=== PATIENT | male | born 1980 | race African-American/Black ===

== ENCOUNTER 2019-09-14 09:47 | Inpatient (IN) | payer OTHER ==
[2019-09-14 11:10] VITALS: BMI 19.8
--- NOTE | 2019-09-14 11:43 | HP ---
CIWA Score Nausea/Vomitin Muscle Tremors: 1-None Visible, but [place] Anxiety: 6 Agitation: 3 Paroxysmal Sweats: 1-Minimal Palms Moist Orientation: 0-Oriented Tacttile Disturbances: 2-Mild Itch/Numbness/Burn Auditory Disturbances: 0-None Visual Disturbances: 1-Very Mild Sensitivity Headache: 3-Moderate CIWA-Ar Total Score: 20 - Admission Criteria OASAS Guidelines: Admission for Medically Managed Detox: Requires at least one of the followin. CIWA greater than 12 2. Seizures within the past 24 hours 3. Delirium tremens within the past 24 hours 4. Hallucinations within the past 24 hours 5. Acute intervention needed for co occurring medical disorder 6. Acute intervention needed for co occurring psychiatric disorder 7. Severe withdrawal that cannot be handled at a lower level of care (continued vomiting, continued diarrhea, abnormal vital signs) requiring intravenous medication and/or fluids 8. Admitting History and Physical - Admission Chief Complaint: " Ifor new year don't like where my life is going. I want to make changes and be happy and get back with my family." History of Present Illness: 39 year old male with history of opioid dependence, alcohol dependence with withdrawals, and cocaine use disorder. Heroin uses 1 bundle on weekends, last used yesterday. He is drinking 1 6 pack of beers daily, last drank yesterday. Plus 1 pint of vodka every weekend. He is using cocaine/ crack fridays and saturdays $8 ballers 170-180$ He has attempted detox in the past last one 3 weeks ago in [facility]. He completed it and then relapsed. He believe he relapsed due to homeless living in shelters and friend's homes. He smokes 1/2 ppd for since age 14 years old. PMH: None Psurg: Left knee ACL LCL reconstructive surgery due to accident 04/2013. He's displaced with and children about 3 weeks. He is homeless and not in intermediate system. He's done 3 months [facility] and then [facility]. History Source: Patient Limitations to Obtaining History: No Limitations - Past Surgical History Additional Past Surgical History: LEft Knee reconstructive surgery. 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 Loss EENT: reports: Double Vision Respiratory: reports: No Symptoms reported Cardiac: reports: No Symptoms Reported GI: reports: Nausea, Abdominal cramping : reports: No Symptoms Reported Musculoskeletal: reports: No Symptoms Reported Integumentary: reports: No Symptoms Reported Neuro: reports: No Symptoms reported Endocrine: reports: No Symptoms Reported Hematology: reports: No Symptoms Reported Psychiatric: reports: Judgement Intact, Mood/Affect Appropiate, Orientated x3 Other Systems: Reviewed and Negative Patient History - Patient Medical History Hx Anemia: No Hx Asthma: No Hx Chronic Obstructive Pulmonary Disease (COPD): No Hx Cancer: No Hx Cardiac Disorders: No Hx Congestive Heart Failure: No Hx Hypertension: No Hx Hypercholesterolemia: No Hx Pacemaker: No HX Cerebrovascular Accident: No Hx Seizures: No Hx Dementia: No Hx Diabetes: No Hx Gastrointestinal Disorders: No Hx Liver Disease: No Hx Genitourinary Disorders: No Hx Sexually Transmitted Disorders: No Hx Renal Disease (ESRD): No Hx Thyroid Disease: No Hx Human Immunodeficiency Virus (HIV): No Hx Hepatitis C: No Hx Depression: No Hx Suicide Attempt: No Hx Bipolar Disorder: No Hx Schizophrenia: No - Patient Surgical History Past Surgical History: Yes Other Surgical History: Left Knee reconstructive surgery - PPD History Previous Implant?: No Documented Results: Negative w/o proof Implanted On Prior R Admission?: No Results: negative PPD to be Administered?: Yes - Smoking Cessation Smoking history: Current every day smoker Have you smoked in the past 12 months: Yes Aproximately how many cigarettes per day: 10 Hx Chewing Tobacco Use: No Initiated information on smoking cessation: Yes 'Breaking Loose' booklet given: 09/14/19 - Substances abused Alcohol Substance route: Oral Frequency: 3-6 times per week Amount used: a pint of vodka Age of first use: 14 Date of last use: 09/12/19 Cocaine Substance route: Smoking Frequency: 1-2 times per week Amount used: $320/week Age of first use: 30 Date of last use: 09/13/19 Heroin Substance route: Inhalation Frequency: 1-2 times per week Amount used: $100/week Age of first use: 38 Date of last use: 09/13/19 Admission Physical Exam [facility] - Vital Signs Vital Signs: Vital Signs - 24 hr 09/14/19 10:57 Temperature 98.7 F Pulse Rate 93 H Respiratory 18 Rate Blood Pressure 119/61 - Physical General Appearance: Yes: Alcohol on Breath, Cachetic, Tremorous, Irritable, Sweating, Anxious HEENTM: Yes: EOMI, Hearing grossly Normal, Normal ENT Inspection, Normocephalic , Normal Voice, GABRIEL, Pharynx Normal, Tm's normal Respiratory: Yes: Chest Non-Tender, Lungs Clear, Normal Breath Sounds, No Respiratory Distress, No Accessory Muscle Use Neck: Yes: No masses,lesions,Nodules, Supple, Trachea in good position Breast: Yes: Within Normal Limits Cardiology: Yes: Regular Rhythm, Regular Rate, S1, S2 Abdominal: Yes: Normal Bowel Sounds, Non Tender, Flat, Soft Genitourinary: Yes: Within Normal Limits Back: Yes: Normal Inspection Musculoskeletal: Yes: full range of Motion, Gait Steady, Pelvis Stable Extremities: Yes: Normal Capillary Refill, Normal Inspection, Normal Range of Motion, Non-Tender Neurological: Yes: air cargo agent II-XII NML intact, Fully Oriented, Alert, Motor Strength 5/5, Normal Mood/Affect Integumentary: Yes: Normal Color, Warm Lymphatic: Yes: Within Normal Limits - Diagnostic (1) Alcohol dependence with withdrawal Current Visit: Yes Status: Acute (2) Dbfrd-Fbusaatvy-Rkabj (WPW) pattern Current Visit: Yes Status: Acute Cleared for Admission [facility] - Detox or Rehab [facility] Level of Care: Medically Managed Detox Regimen/Protocol: Librium Claeared for Rehab Admission: No Screened but not Admitted - Documentation of Visit Screened but not Admitted: No Inpatient Rehab Admission - Rehab Decision to Admit Inpatient rehab admission?: No
[2019-09-14] MEDS ORDERED: MAGNESIUM HYDROX 2400MG/30ML ORAL SUSPENSION 30 ML CUP PO PRN (11:53)
[2019-09-14] MEDS ORDERED: MAG HYDROX/AL HYDROX/SIMETH 30 ML UNIT-DOSE CUP PO PRN (11:53)
[2019-09-14] MEDS ORDERED: BISMUTH SUBSALICYLATE 524 MG/30 ML UD PO PRN (11:53)
[2019-09-14] MEDS ORDERED: METHOCARBAMOL 500 MG TABLET PO PRN (11:53)
[2019-09-14] MEDS ORDERED: chlordiazePOXIDE HCL 10 MG CAPSULE PO PRN (11:53)
[2019-09-14] MEDS ORDERED: hydrOXYzine PAMOATE 25 MG CAPSULE (FP) PO PRN (11:53)
[2019-09-14] MEDS ORDERED: IBUPROFEN 400 MG TABLET (FP) PO PRN (11:53)
[2019-09-14] MEDS ORDERED: ACETAMINOPHEN 325 MG TABLET (FP) PO PRN ×2 (11:53)
[2019-09-14] MEDS ORDERED: MAGNESIUM CITRATE 300 ML BOTTLE PO PRN (11:53)
[2019-09-14] MEDS ORDERED: MENTHOL/PHENOL 1 EACH UD MM PRN (11:53)
[2019-09-14] MEDS: chlordiazePOXIDE HCL 25 MG CAPSULE PO SCH ×2 (13:14→21:54)
--- NOTE | 2019-09-14 13:38 | EKG ---
Test Reason : Blood Pressure : / mmHG Vent. Rate : 086 BPM Atrial Rate : 086 BPM P-R Int : 166 ms QRS Dur : 086 ms QT Int : 366 ms P-R-T Axes : 055 069 037 degrees QTc Int : 437 ms NORMAL SINUS RHYTHM NORMAL ECG NO PREVIOUS ECGS AVAILABLE Confirmed by CLAUDIA CHAPMAN MD ([id number]) on 09/14/2019 1:38:31 PM Referred By: Confirmed By:CLAUDIA CHAPMAN MD
[2019-09-14 16:52] LABS: HEMATOCRIT 42.4 % (35.4-49); HEMOGLOBIN 13.7 GM/dL (11.7-16.9); MCH 31.5 pg (25.7-33.7); MCHC 32.3 g/dl (32.0-35.9); MEAN CELL VOLUME 97.6 fl (80-96); MEAN PLT VOLUME 9.7 fl (7.5-11.1); PLATELET COUNT 233 K/MM3 (134-434); RBC 4.35 M/mm3 (4.00-5.60); RDW 15.4 % (11.9-15.9); WHITE BLOOD COUNT 9.8 K/mm3 (4.0-10.0)
[2019-09-14 16:58] LABS: ALBUMIN 4.3 g/dl (3.4-5.0); BILIRUBIN,TOTAL 0.8 mg/dL (0.2-1); CALCIUM 9.8 mg/dL (8.5-10.1); CREATININE 1.1 mg/dL (0.55-1.3); POTASSIUM 4.2 mmol/L (3.5-5.1)
[2019-09-14] MEDS: THIAMINE HCL 100 MG TABLET (FP) PO SCH (22:23)
[2019-09-14] MEDS: MELATONIN 5 MG TABLETS PO PRN (22:24)
[2019-09-15] MEDS: chlordiazePOXIDE HCL 25 MG CAPSULE PO SCH ×3 (06:46→23:50)
--- NOTE | 2019-09-15 09:23 | PN ---
[facility] CIWA - CIWA Score Nausea/Vomitin-No Nausea/No Vomiting Muscle Tremors: 3 Anxiety: 2 Agitation: 3 Paroxysmal Sweats: 3 Orientation: 0-Oriented Tacttile Disturbances: 0-None Auditory Disturbances: 0-None Visual Disturbances: 0-None Headache: 0-None Present CIWA-Ar Total Score: 11 S Progress Note (SOAP) Subjective: shakes sweats interrupted sleep body aches restless Objective: 09/15/19 09:22 Vital Signs Temperature 98.2 F 09/15/19 06:08 Pulse Rate 69 09/15/19 06:08 Respiratory Rate 18 09/15/19 06:08 Blood Pressure 105/59 L 09/15/19 06:08 O2 Sat by Pulse Oximetry (%) Laboratory Tests 09/14/19 09/14/19 12:00 12:00 WBC 9.8 RBC 4.35 Hgb 13.7 Hct 42.4 MCV 97.6 H MCH 31.5 MCHC 32.3 RDW 15.4 Plt Count 233 MPV 9.7 Sodium 139 Potassium 4.2 Chloride 101 Carbon Dioxide 31 Anion Gap 7 L BUN 11.0 Creatinine 1.1 Est GFR (CKD-EPI)AfAm 96.13 Est GFR (CKD-EPI)NonAf 82.94 Random Glucose 132 H Calcium 9.8 Total Bilirubin 0.8 AST 28 ALT 33 Alkaline Phosphatase 90 Total Protein 8.0 Albumin 4.3 aaox3 ambulating no acute distress Assessment: 09/15/19 09:22 withdrawals Plan: continue detox increase fluids
[2019-09-15] MEDS: NICOTINE 14 MG/24 HOURS TOPICAL PATCH TD SCH (09:28)
[2019-09-15] MEDS: PRENATAL VITAMINS W/ FOLIC ACID TABLET (FP) PO SCH (09:28)
[2019-09-15] MEDS: THIAMINE HCL 100 MG TABLET (FP) PO SCH (23:50)
[2019-09-16] MEDS: chlordiazePOXIDE 5 MG CAPSULE PO SCH ×3 (06:46→22:35)
[2019-09-16] MEDS: PRENATAL VITAMINS W/ FOLIC ACID TABLET (FP) PO SCH (10:25)
[2019-09-16] MEDS: NICOTINE 14 MG/24 HOURS TOPICAL PATCH TD SCH (10:26)
--- NOTE | 2019-09-16 11:29 | PN ---
[facility] CIWA - CIWA Score Nausea/Vomitin-No Nausea/No Vomiting Muscle Tremors: 3 Anxiety: 2 Agitation: 2 Paroxysmal Sweats: 2 Orientation: 0-Oriented Tacttile Disturbances: 0-None Auditory Disturbances: 0-None Visual Disturbances: 0-None Headache: 0-None Present CIWA-Ar Total Score: 9 S Progress Note (SOAP) Subjective: sweats mild shakes tired Objective: 09/16/19 11:29 Vital Signs Temperature 98.2 F 09/16/19 09:19 Pulse Rate 80 09/16/19 09:19 Respiratory Rate 18 09/16/19 09:19 Blood Pressure 124/63 09/16/19 09:19 O2 Sat by Pulse Oximetry (%) Laboratory Tests 09/14/19 09/14/19 09/14/19 12:00 12:00 12:00 WBC 9.8 RBC 4.35 Hgb 13.7 Hct 42.4 MCV 97.6 H MCH 31.5 MCHC 32.3 RDW 15.4 Plt Count 233 MPV 9.7 Sodium 139 Potassium 4.2 Chloride 101 Carbon Dioxide 31 Anion Gap 7 L BUN 11.0 Creatinine 1.1 Est GFR (CKD-EPI)AfAm 96.13 Est GFR (CKD-EPI)NonAf 82.94 Random Glucose 132 H Calcium 9.8 Total Bilirubin 0.8 AST 28 ALT 33 Alkaline Phosphatase 90 Total Protein 8.0 Albumin 4.3 RPR Titer Nonreactive HIV 1&2 Antibody Screen HIV P24 Antigen 09/14/19 12:20 WBC RBC Hgb Hct MCV MCH MCHC RDW Plt Count MPV Sodium Potassium Chloride Carbon Dioxide Anion Gap BUN Creatinine Est GFR (CKD-EPI)AfAm Est GFR (CKD-EPI)NonAf Random Glucose Calcium Total Bilirubin AST ALT Alkaline Phosphatase Total Protein Albumin RPR Titer HIV 1&2 Antibody Screen Negative HIV P24 Antigen Negative aaox3 ambulating no acute distress Assessment: 09/16/19 11:29 withdrawals Plan: continue detox increase fluids
[2019-09-16] MEDS: THIAMINE HCL 100 MG TABLET (FP) PO SCH (22:35)
[2019-09-16] MEDS: MELATONIN 5 MG TABLETS PO PRN (22:36)
[2019-09-17] MEDS ORDERED: chlordiazePOXIDE HCL 10 MG CAPSULE PO PRN
[2019-09-17] MEDS: chlordiazePOXIDE HCL 10 MG CAPSULE PO SCH ×3 (06:11→21:51)
[2019-09-17] MEDS: NICOTINE 14 MG/24 HOURS TOPICAL PATCH TD SCH (10:52)
[2019-09-17] MEDS: PRENATAL VITAMINS W/ FOLIC ACID TABLET (FP) PO SCH (10:53)
--- NOTE | 2019-09-17 11:28 | PN ---
S CIWA - CIWA Score Nausea/Vomitin-No Nausea/No Vomiting Muscle Tremors: 2 Anxiety: 1-Mildly Anxious Agitation: 0-Normal Activity Paroxysmal Sweats: No Perspiration Orientation: 0-Oriented Tacttile Disturbances: 0-None Auditory Disturbances: 0-None Visual Disturbances: 0-None Headache: 0-None Present CIWA-Ar Total Score: 3 [facility] Progress Note (SOAP) Subjective: feeling better Objective: 09/17/19 11:27 Vital Signs Temperature 98.2 F 09/17/19 09:15 Pulse Rate 74 09/17/19 09:15 Respiratory Rate 18 09/17/19 09:15 Blood Pressure 117/62 09/17/19 09:15 O2 Sat by Pulse Oximetry (%) aaox3 lying in bed no acute distress Assessment: 09/17/19 11:28 mild withdrawals Plan: continue detox d/c in am
[2019-09-17 22:33] VITALS: TEMP 98.2
[2019-09-17] MEDS: THIAMINE HCL 100 MG TABLET (FP) PO SCH (22:41)
[2019-09-17] MEDS: MELATONIN 5 MG TABLETS PO PRN (22:42)
[2019-09-18] MEDS ORDERED: chlordiazePOXIDE HCL 10 MG CAPSULE PO ONE (05:00)
--- NOTE | 2019-09-18 08:24 | DS ---
[facility] Detox Discharge Summary Admission Date: 09/14/19 Discharge Date: 09/18/19 - History Present History: Alcohol Dependence - Physical Exam Results Vital Signs: Vital Signs Temperature 98.2 F 09/18/19 05:00 Pulse Rate 68 09/18/19 05:00 Respiratory Rate 18 09/18/19 05:00 Blood Pressure 99/58 L 09/18/19 05:00 O2 Sat by Pulse Oximetry (%) Pertinent Admission Physical Exam Findings: Vital Signs Temperature 98.2 F 09/18/19 05:00 Pulse Rate 68 09/18/19 05:00 Respiratory Rate 18 09/18/19 05:00 Blood Pressure 99/58 L 09/18/19 05:00 O2 Sat by Pulse Oximetry (%) Laboratory Tests 09/14/19 09/14/19 09/14/19 12:00 12:00 12:00 WBC 9.8 RBC 4.35 Hgb 13.7 Hct 42.4 MCV 97.6 H MCH 31.5 MCHC 32.3 RDW 15.4 Plt Count 233 MPV 9.7 Sodium 139 Potassium 4.2 Chloride 101 Carbon Dioxide 31 Anion Gap 7 L BUN 11.0 Creatinine 1.1 Est GFR (CKD-EPI)AfAm 96.13 Est GFR (CKD-EPI)NonAf 82.94 Random Glucose 132 H Calcium 9.8 Total Bilirubin 0.8 AST 28 ALT 33 Alkaline Phosphatase 90 Total Protein 8.0 Albumin 4.3 RPR Titer Nonreactive HIV 1&2 Antibody Screen HIV P24 Antigen 09/14/19 12:20 WBC RBC Hgb Hct MCV MCH MCHC RDW Plt Count MPV Sodium Potassium Chloride Carbon Dioxide Anion Gap BUN Creatinine Est GFR (CKD-EPI)AfAm Est GFR (CKD-EPI)NonAf Random Glucose Calcium Total Bilirubin AST ALT Alkaline Phosphatase Total Protein Albumin RPR Titer HIV 1&2 Antibody Screen Negative HIV P24 Antigen Negative aaox3 ambulating no acute distress - Treatment Hospital Course: Detox Protocol Followed, Detoxed Safely, Responded well, Discharged Condition Good, Rehab Referral Accepted Patient has Accepted a Rehab Referral to: pt referred to [facility] inpatient rehab - Medication Discharge Medications: Ambulatory Orders NK [No Known Home Medication] 09/14/19 - Diagnosis (1) Alcohol dependence with withdrawal Current Visit: Yes Status: Chronic Qualifiers: Complication of substance-induced condition: uncomplicated Qualified Code(s ): F10.230 - Alcohol dependence with withdrawal, uncomplicated (2) Ubdtn-Usrnjnvhd-Ekikm (WPW) pattern Current Visit: Yes Status: Acute - AMA Did Patient Leave Against Medical Advice: No
[2019-09-18 09:21] VITALS: BP 122/65; PULSE 79
[2019-09-18] MEDS: PRENATAL VITAMINS W/ FOLIC ACID TABLET (FP) PO SCH (10:49)
[2019-09-18] MEDS: NICOTINE 14 MG/24 HOURS TOPICAL PATCH TD SCH (10:49)
[2019-09-18] MEDS ORDERED: NICOTINE POLACRILEX 4 MG GUM BUC PRN (10:51)
[2019-09-18] MEDS ORDERED: VITAMINS A AND D TOPICAL OINTMENT 60 GM TUBE TP SCH (12:00)
== END 2019-09-18 11:30 | disposition other institution (70) | DRG 775 ==
LOC: YASAS 09:47 → Y6N 12:08
PROVIDERS: ADMIT Allergy & Immunology; ATTEND Allergy & Immunology
PROC: HZ2ZZZZ Detoxification Services for Substance Abuse Treatment (ICD-10-PCS; principal; 2019-09-14)
DX: F10.230 Alcohol dependence with withdrawal, uncomplicated (principal); F17.210 Nicotine dependence, cigarettes, uncomplicated; I45.6 Pre-excitation syndrome; Z91.018 Allergy to other foods; Z59.0 Homelessness
CPT/HCPCS: 36415; 80053; 85027; 86593; 87389; 93005; 93010

== ENCOUNTER 2019-09-18 11:46 | Inpatient (IN) | payer OTHER ==
[2019-09-18] MEDS ORDERED: MENTHOL/PHENOL 1 EACH UD MM PRN (12:28)
[2019-09-18] MEDS ORDERED: MAGNESIUM HYDROX 2400MG/30ML ORAL SUSPENSION 30 ML CUP PO PRN (12:28)
[2019-09-18] MEDS ORDERED: LOPERAMIDE HCL 2 MG CAPSULE PO PRN (12:28)
[2019-09-18] MEDS ORDERED: ACETAMINOPHEN 325 MG TABLET (FP) PO PRN (12:28)
[2019-09-18] MEDS ORDERED: guaiFENesin 200 MG/10 ML 10 ML UNIT-DOSE CUPS PO PRN (12:28)
[2019-09-18] MEDS ORDERED: P-EPHED 60MG/TRIPROLIDI 2.5MG TABLET PO PRN (12:28)
[2019-09-18] MEDS ORDERED: IBUPROFEN 400 MG TABLET (FP) PO PRN (12:28)
[2019-09-18] MEDS ORDERED: MAG HYDROX/AL HYDROX/SIMETH 30 ML UNIT-DOSE CUP PO PRN (12:28)
[2019-09-18] MEDS ORDERED: MAGNESIUM CITRATE 300 ML BOTTLE PO PRN (12:28)
--- NOTE | 2019-09-18 12:42 | PN ---
[facility] Progress Note Note: First admission for this patient. Transferred from detox to [address] [place], [place] [id number]. Labs- WNL, problem list reviewed. No home medications. Stable at this time.
[2019-09-18] MEDS: MELATONIN 5 MG TABLETS PO PRN (21:23)
[2019-09-18] MEDS: THIAMINE HCL 100 MG TABLET (FP) PO SCH (21:23)
[2019-09-19] MEDS: PRENATAL VITAMINS W/ FOLIC ACID TABLET (FP) PO SCH (09:59)
[2019-09-19] MEDS: NICOTINE 14 MG/24 HOURS TOPICAL PATCH TD SCH (09:59)
[2019-09-19] MEDS: NICOTINE POLACRILEX 2 MG GUM BUC PRN (09:59)
[2019-09-19] MEDS: hydrOXYzine PAMOATE 25 MG CAPSULE (FP) PO PRN (10:01)
[2019-09-19] MEDS: MELATONIN 5 MG TABLETS PO PRN (21:28)
[2019-09-19] MEDS: THIAMINE HCL 100 MG TABLET (FP) PO SCH (21:28)
[2019-09-20] MEDS: NICOTINE POLACRILEX 2 MG GUM BUC PRN (09:51)
[2019-09-20] MEDS: NICOTINE 14 MG/24 HOURS TOPICAL PATCH TD SCH (09:51)
[2019-09-20] MEDS: PRENATAL VITAMINS W/ FOLIC ACID TABLET (FP) PO SCH (09:51)
[2019-09-20] MEDS: MELATONIN 5 MG TABLETS PO PRN (21:31)
[2019-09-20] MEDS: THIAMINE HCL 100 MG TABLET (FP) PO SCH (21:31)
[2019-09-21] MEDS: NICOTINE 14 MG/24 HOURS TOPICAL PATCH TD SCH (09:57)
[2019-09-21] MEDS: PRENATAL VITAMINS W/ FOLIC ACID TABLET (FP) PO SCH (09:57)
[2019-09-21] MEDS ORDERED: PT OWN MED DRAWER 7, Y5N ONE (18:09)
[2019-09-21] MEDS: VITAMINS A AND D TOPICAL OINTMENT 60 GM TUBE TP SCH (18:40)
[2019-09-21] MEDS: THIAMINE HCL 100 MG TABLET (FP) PO SCH (21:54)
[2019-09-21] MEDS: hydrOXYzine PAMOATE 25 MG CAPSULE (FP) PO PRN (21:54)
[2019-09-22] MEDS: VITAMINS A AND D TOPICAL OINTMENT 60 GM TUBE TP SCH ×5 (01:40→23:08)
[2019-09-22] MEDS: NICOTINE 14 MG/24 HOURS TOPICAL PATCH TD SCH (10:05)
[2019-09-22] MEDS: PRENATAL VITAMINS W/ FOLIC ACID TABLET (FP) PO SCH (10:50)
[2019-09-22] MEDS: MELATONIN 5 MG TABLETS PO PRN (21:31)
[2019-09-22] MEDS: THIAMINE HCL 100 MG TABLET (FP) PO SCH (21:32)
[2019-09-23] MEDS: VITAMINS A AND D TOPICAL OINTMENT 60 GM TUBE TP SCH ×3 (06:16→19:48)
[2019-09-23] MEDS ORDERED: HYDROCORTISONE 0.5% TOPICAL CREAM 30 GM TUBE TP PRN (10:08)
--- NOTE | 2019-09-23 10:11 | PN ---
S Progress Note Note: PATIENT C/O RASH TO ARMPIT AREA, LIKELY DUE TO DEODORANT. PATIENT ADVISED TO HAVE RELATIVE BRING HIM DEODORANT FROM HOME. WILL TREAT PRURITIS WITH HYDROCORTISONE. Vital Signs Temperature 98.1 F 09/23/19 06:43 Pulse Rate 71 09/23/19 06:43 Respiratory Rate 18 09/23/19 06:43 Blood Pressure 114/64 09/23/19 06:43 O2 Sat by Pulse Oximetry (%)
[2019-09-23] MEDS: NICOTINE 14 MG/24 HOURS TOPICAL PATCH TD SCH (10:13)
[2019-09-23] MEDS: NICOTINE POLACRILEX 2 MG GUM BUC PRN (10:13)
[2019-09-23] MEDS: PRENATAL VITAMINS W/ FOLIC ACID TABLET (FP) PO SCH (10:14)
[2019-09-23] MEDS: THIAMINE HCL 100 MG TABLET (FP) PO SCH (21:56)
[2019-09-23] MEDS: MELATONIN 5 MG TABLETS PO PRN (21:57)
[2019-09-23] MEDS: SUVOREXANT 10 MG TABLET PO PRN (21:58)
[2019-09-24] MEDS: VITAMINS A AND D TOPICAL OINTMENT 60 GM TUBE TP SCH ×4 (00:38→17:52)
[2019-09-24] MEDS: PRENATAL VITAMINS W/ FOLIC ACID TABLET (FP) PO SCH (10:09)
[2019-09-24] MEDS: NICOTINE 14 MG/24 HOURS TOPICAL PATCH TD SCH (10:09)
[2019-09-24] MEDS: THIAMINE HCL 100 MG TABLET (FP) PO SCH (21:00)
[2019-09-24] MEDS: MELATONIN 5 MG TABLETS PO PRN (21:00)
[2019-09-24] MEDS: SUVOREXANT 10 MG TABLET PO PRN (21:00)
[2019-09-25] MEDS: VITAMINS A AND D TOPICAL OINTMENT 60 GM TUBE TP SCH ×5 (00:40→23:23)
[2019-09-25] MEDS: NICOTINE 14 MG/24 HOURS TOPICAL PATCH TD SCH (10:25)
[2019-09-25] MEDS: PRENATAL VITAMINS W/ FOLIC ACID TABLET (FP) PO SCH (10:26)
[2019-09-25] MEDS: MELATONIN 5 MG TABLETS PO PRN (21:28)
[2019-09-26] MEDS: VITAMINS A AND D TOPICAL OINTMENT 60 GM TUBE TP SCH ×4 (06:06→23:19)
[2019-09-26] MEDS: NICOTINE 14 MG/24 HOURS TOPICAL PATCH TD SCH (10:32)
[2019-09-26] MEDS: PRENATAL VITAMINS W/ FOLIC ACID TABLET (FP) PO SCH (10:32)
[2019-09-26] MEDS ORDERED: PT OWN MED DRAWER 7, Y5N ONE (20:08)
[2019-09-26] MEDS: SUVOREXANT 10 MG TABLET PO PRN (21:56)
[2019-09-26] MEDS: MELATONIN 5 MG TABLETS PO PRN (21:57)
[2019-09-26] MEDS: THIAMINE HCL 100 MG TABLET (FP) PO PRN (21:57)
[2019-09-27] MEDS: VITAMINS A AND D TOPICAL OINTMENT 60 GM TUBE TP SCH ×4 (06:06→23:13)
[2019-09-27] MEDS: PRENATAL VITAMINS W/ FOLIC ACID TABLET (FP) PO SCH (10:01)
[2019-09-27] MEDS: NICOTINE 14 MG/24 HOURS TOPICAL PATCH TD SCH (10:01)
--- NOTE | 2019-09-27 15:19 | PN ---
[facility] Progress Note Note: Psychiatric nurse practitioner note: Belsoa 10mg renewed X3. Verbal consent given.
[2019-09-27] MEDS: SUVOREXANT 10 MG TABLET PO PRN (21:57)
[2019-09-28] MEDS: VITAMINS A AND D TOPICAL OINTMENT 60 GM TUBE TP SCH ×4 (06:23→23:42)
[2019-09-28] MEDS: NICOTINE 14 MG/24 HOURS TOPICAL PATCH TD SCH (12:39)
[2019-09-28] MEDS: PRENATAL VITAMINS W/ FOLIC ACID TABLET (FP) PO SCH (12:39)
[2019-09-28] MEDS: THIAMINE HCL 100 MG TABLET (FP) PO PRN (21:46)
[2019-09-28] MEDS: SUVOREXANT 10 MG TABLET PO PRN (21:47)
[2019-09-29] MEDS: VITAMINS A AND D TOPICAL OINTMENT 60 GM TUBE TP SCH ×4 (06:22→23:41)
--- NOTE | 2019-09-29 08:50 | CONSULT ---
[facility] Psychiatric Consult - Data Date of interview: 09/29/18 Admission source: [facility] Identifying data: Patient is a 39 year old single male, but , father of two, unemployed, homeless, and is currently supported by financial assistance. This is patient's first admission to rehab at [facility]. Patient admitted to for alcohol dependence. Substance Abuse History: Smoking Cessation. Smoking history: Current every day smoker. Have you smoked in the past 12 months: Yes. Aproximately how many cigarettes per day: 10. Hx Chewing Tobacco Use: No. Initiated information on smoking cessation: Yes. 'Breaking Loose' booklet given: 09/14/19. - Substances abused. Alcohol. Substance route: Oral. Frequency: 3-6 times per week. Amount used: a pint of vodka. Age of first use: 14. Date of last use: 09/12/19. Cocaine. Substance route: Smoking. Frequency: 1-2 times per week. Amount used: $320/week. Age of first use: 30. Date of last use: . Heroin. Substance route: Inhalation. Frequency: 1-2 times per week. Amount used: $100/week. Age of first use: 38. Date of last use: Medical History: Left Knee reconstructive surgery. Psychiatric History: Patient denies history of psychiatric hospitalizations and suicide attempt. Mr. Quach reports seeing a psychatrist when admitted to detox/ rehab facilities. Reports accepting seroquel 25mg-50mg for insomnia when he was at [facility] and [facility]. At present patient reports stable mood but is experiencing difficulty sleeping. Physical/Sexual Abuse/Trauma History: denies. Mental Status Exam - Mental Status Exam Alert and Oriented to: Time, Place, Person Cognitive Function: Good Patient Appearance: Well Groomed Mood: Withdrawn Affect: Appropriate Patient Behavior: Appropriate, Cooperative Speech Pattern: Appropriate Voice Loudness: Normal Thought Process: Goal Oriented Thought Disorder: Not Present Hallucinations: Denies Suicidal Ideation: Denies Homicidal Ideation: Denies Insight/Judgement: Poor Sleep: Poorly Appetite: Fair Muscle strength/Tone: Normal Gait/Station: Normal Psychiatric Findings - Problem List ([place] 1, 2,3) (1) Alcohol use disorder Current Visit: Yes Status: Chronic (2) Insomnia Current Visit: Yes Status: Acute - Initial Treatment Plan Initial Treatment Plan: Psychoeducation provided. Rehab in progress. Will order Seroquel 50mg for insomnia. Will continue Belsomra 10mg HS PRN. Patient informed that a prescription of seroquel 50mg for insomnia will not be given upon discharge.
[2019-09-29] MEDS: NICOTINE 14 MG/24 HOURS TOPICAL PATCH TD SCH (09:58)
[2019-09-29] MEDS: PRENATAL VITAMINS W/ FOLIC ACID TABLET (FP) PO SCH (09:58)
[2019-09-29] MEDS: SUVOREXANT 10 MG TABLET PO PRN (21:04)
[2019-09-29] MEDS: QUEtiapine FUMARATE 50 MG TABLET PO SCH (21:04)
[2019-09-29] MEDS: THIAMINE HCL 100 MG TABLET (FP) PO PRN (21:04)
[2019-09-30] MEDS: VITAMINS A AND D TOPICAL OINTMENT 60 GM TUBE TP SCH (06:05)
[2019-09-30] MEDS ORDERED: VITAMINS A AND D TOPICAL OINTMENT 60 GM TUBE TP PRN (09:17)
--- NOTE | 2019-09-30 10:20 | HP ---
[facility] Rehab Assess/Revision - Admission History Admitted to Rehab from: [facility] Date of Admission to Rehab: 09/18/19 - Vital signs Vital Signs: Vital Signs Period Temp Pulse Resp BP Sys/Foley Pulse Ox Last 24 Hr 98 F 84 18-20 107/72 - Findings Detox History & Physical reviewed: Yes Concur with findings: Yes Inpatient Rehab Admission - Rehab Decision to Admit Inpatient rehab admission?: Yes - Initial Determination Are CD services needed?: Yes Free of communicable disease: Yes Not in need of hospitalization: Yes - Rehab Admission Criteria Previous failed treatment: Yes Poor recovery environment: Yes Comorbidities: Yes Lacks judgement: Yes Patient is meeting Inpatient Rehab admission criteria:: Yes
[2019-09-30] MEDS: NICOTINE 14 MG/24 HOURS TOPICAL PATCH TD SCH (10:52)
[2019-09-30] MEDS: PRENATAL VITAMINS W/ FOLIC ACID TABLET (FP) PO SCH (10:53)
[2019-09-30] MEDS: QUEtiapine FUMARATE 50 MG TABLET PO SCH (21:23)
[2019-09-30] MEDS: SUVOREXANT 10 MG TABLET PO PRN (21:24)
[2019-10-01] MEDS: NICOTINE 14 MG/24 HOURS TOPICAL PATCH TD SCH (10:43)
[2019-10-01] MEDS: PRENATAL VITAMINS W/ FOLIC ACID TABLET (FP) PO SCH (10:44)
[2019-10-01] MEDS: THIAMINE HCL 100 MG TABLET (FP) PO PRN (21:03)
[2019-10-01] MEDS: SUVOREXANT 10 MG TABLET PO PRN (21:03)
[2019-10-01] MEDS: QUEtiapine FUMARATE 50 MG TABLET PO SCH (21:03)
[2019-10-02] MEDS: NICOTINE 14 MG/24 HOURS TOPICAL PATCH TD SCH (10:17)
[2019-10-02] MEDS: PRENATAL VITAMINS W/ FOLIC ACID TABLET (FP) PO SCH (10:17)
[2019-10-02] MEDS: QUEtiapine FUMARATE 50 MG TABLET PO SCH (21:24)
[2019-10-02] MEDS: THIAMINE HCL 100 MG TABLET (FP) PO PRN (21:24)
[2019-10-02] MEDS: SUVOREXANT 10 MG TABLET PO PRN (21:25)
[2019-10-03 07:10] VITALS: PULSE 80
[2019-10-03] MEDS: NICOTINE 14 MG/24 HOURS TOPICAL PATCH TD SCH (10:17)
[2019-10-03] MEDS: PRENATAL VITAMINS W/ FOLIC ACID TABLET (FP) PO SCH (10:17)
[2019-10-03] MEDS: QUEtiapine FUMARATE 50 MG TABLET PO SCH (21:37)
[2019-10-03] MEDS: THIAMINE HCL 100 MG TABLET (FP) PO PRN (21:37)
[2019-10-03] MEDS: SUVOREXANT 10 MG TABLET PO PRN (21:39)
[2019-10-04 06:59] VITALS: BP 105/72; TEMP 97.6
[2019-10-04] MEDS: NICOTINE 14 MG/24 HOURS TOPICAL PATCH TD SCH (09:13)
[2019-10-04] MEDS: PRENATAL VITAMINS W/ FOLIC ACID TABLET (FP) PO SCH (09:13)
[2019-10-04] MEDS: THIAMINE HCL 100 MG TABLET (FP) PO PRN (21:05)
[2019-10-04] MEDS: QUEtiapine FUMARATE 50 MG TABLET PO SCH (21:05)
[2019-10-04] MEDS: SUVOREXANT 10 MG TABLET PO PRN (21:06)
--- NOTE | 2019-10-04 22:50 | DS ---
[facility] Rehab Discharge Summary - [facility] Rehab Discharge Summary Admission Date: 09/18/19 Discharge Date: 10/04/19 - History Present History: Alcohol dependence Additional Comments: INFORMED BY NURSING CLINICAL ENGINEER [place] AFTER SPEAKING WITH YOANNA MALONE CLIENT WILL BE ADMINISTRATIVELY DC FOR THREATENING BEHAVIOR TOWARD STAFF AND ANOTHER PATIENT. CLIENT IS A/O X3 NAD. DENIES ANY SI/HI AVH. CLIENT REFUSING VS. 911 WAS CALLED TO ASSIST CLIENT OF THE UNIT Pertinent Past History: CLIENT DENIES - Discharge Physical Exam Vital Signs: Vital Signs Temperature 97.6 F 10/04/19 06:58 Pulse Rate 80 10/04/19 06:58 Respiratory Rate 18 10/04/19 06:58 Blood Pressure 105/72 10/04/19 06:58 O2 Sat by Pulse Oximetry (%) Pertinent Admission Physical Exam Findings: ADMITTED ON 09/14/2019 FOR DETOX FROM ALCOHOL. CLIENT COMPLETED AND TRANSFERRED TO REHAB ON 09/18/2019. UNEVENTFUL ADMISSION. ADMINISTRATIVE DC TODAY FOR THREATENING BEHAVIOR SEE LABS FROM DETOX ADMISSION - Treatment Discharge Condition: Discharge condition good Hospital Course: ADMITTED ON 09/14/2019 FOR DETOX FROM ALCOHOL. CLIENT COMPLETED AND TRANSFERRED TO REHAB ON 09/18/2019. UNEVENTFUL ADMISSION. ADMINISTRATIVE DC TODAY FOR THREATENING BEHAVIOR Laboratory Tests 09/14/19 09/14/19 09/14/19 12:00 12:00 12:00 WBC 9.8 RBC 4.35 Hgb 13.7 Hct 42.4 MCV 97.6 H MCH 31.5 MCHC 32.3 RDW 15.4 Plt Count 233 MPV 9.7 Sodium 139 Potassium 4.2 Chloride 101 Carbon Dioxide 31 Anion Gap 7 L BUN 11.0 Creatinine 1.1 Est GFR (CKD-EPI)AfAm 96.13 Est GFR (CKD-EPI)NonAf 82.94 Random Glucose 132 H Calcium 9.8 Total Bilirubin 0.8 AST 28 ALT 33 Alkaline Phosphatase 90 Total Protein 8.0 Albumin 4.3 RPR Titer Nonreactive HIV 1&2 Antibody Screen HIV P24 Antigen 09/14/19 12:20 WBC RBC Hgb Hct MCV MCH MCHC RDW Plt Count MPV Sodium Potassium Chloride Carbon Dioxide Anion Gap BUN Creatinine Est GFR (CKD-EPI)AfAm Est GFR (CKD-EPI)NonAf Random Glucose Calcium Total Bilirubin AST ALT Alkaline Phosphatase Total Protein Albumin RPR Titer HIV 1&2 Antibody Screen Negative HIV P24 Antigen Negative LABS NOTED - Medication Discharge Medications: Ambulatory Orders NK [No Known Home Medication] 09/14/19 - Medication-Assisted Treatment (MAT) Medication-Assisted Treatment (MAT): No - Discharge Instructions Diet, activity, other medical instructions: Diet: Activity: Other medical instructions: - Diagnosis (1) Insomnia Status: Chronic Qualifiers: Insomnia type: alcohol-induced Qualified Code(s): F10.982 - Alcohol use, unspecified with alcohol-induced sleep disorder (2) Elcld-Soywnklvo-Kphmr (WPW) pattern Status: Chronic (3) Alcohol dependence with withdrawal Status: Chronic Qualifiers: Complication of substance-induced condition: uncomplicated Qualified Code(s ): F10.230 - Alcohol dependence with withdrawal, uncomplicated (4) Opioid dependence, uncomplicated Status: Chronic (5) Cocaine dependence, uncomplicated Status: Chronic (6) Nicotine dependence Status: Chronic Qualifiers: Nicotine product type: cigarettes Substance use status: uncomplicated Qualified Code(s): F17.210 - Nicotine dependence, cigarettes, uncomplicated - Follow-up Referral Minutes to complete discharge: 30 - AMA Did Patient Leave Against Medical Advice: No Additional Comments: ADMINISTRATIVE DC
== END 2019-10-04 22:05 | disposition left against medical advice (07) | DRG 772 ==
LOC: YASAS 11:46 → Y3W 11:47
PROVIDERS: ADMIT Neuromusculoskeletal Medicine & OMM; ATTEND Neuromusculoskeletal Medicine & OMM
PROC: HZ42ZZZ Group Counseling for Substance Abuse Treatment, Cognitive-Behavioral (ICD-10-PCS; principal; 2019-09-18)
DX: F10.20 Alcohol dependence, uncomplicated (principal); F17.210 Nicotine dependence, cigarettes, uncomplicated; G47.00 Insomnia, unspecified; Z91.018 Allergy to other foods; Z59.0 Homelessness

== ENCOUNTER 2020-07-30 12:43 | Inpatient (IN) | payer OTHER ==
[2020-07-30] MEDS ORDERED: ACETAMINOPHEN 325 MG TABLET (FP) PO PRN (14:27)
[2020-07-30] MEDS ORDERED: P-EPHED 60MG/TRIPROLIDI 2.5MG TABLET PO PRN (14:27)
[2020-07-30] MEDS ORDERED: guaiFENesin 200 MG/10 ML 10 ML UNIT-DOSE CUPS PO PRN (14:27)
[2020-07-30] MEDS ORDERED: LOPERAMIDE HCL 2 MG CAPSULE PO PRN (14:27)
[2020-07-30] MEDS ORDERED: MAGNESIUM HYDROX 2400MG/30ML ORAL SUSPENSION 30 ML CUP PO PRN (14:27)
[2020-07-30] MEDS ORDERED: MAGNESIUM CITRATE 300 ML BOTTLE PO PRN (14:27)
[2020-07-30] MEDS ORDERED: IBUPROFEN 400 MG TABLET (FP) PO PRN (14:27)
[2020-07-30] MEDS ORDERED: MAG HYDROX/AL HYDROX/SIMETH 30 ML UNIT-DOSE CUP PO PRN (14:27)
[2020-07-30] MEDS ORDERED: MENTHOL/PHENOL 1 EACH UD MM PRN (14:27)
[2020-07-30] MEDS ORDERED: NICOTINE POLACRILEX 2 MG GUM BUC PRN (14:27)
[2020-07-30] MEDS: TOLNAFTATE 1% CREAM 15 GM TUBE TP SCH (21:38)
[2020-07-30] MEDS: MELATONIN 5 MG TABLETS PO SCH (21:39)
[2020-07-30] MEDS: THIAMINE HCL 100 MG TABLET (FP) PO SCH (21:39)
[2020-07-31] MEDS: PRENATAL VITAMINS W/ FOLIC ACID TABLET (FP) PO SCH (10:13)
[2020-07-31] MEDS: hydrOXYzine PAMOATE 25 MG CAPSULE (FP) PO PRN (10:13)
[2020-07-31] MEDS: TOLNAFTATE 1% CREAM 15 GM TUBE TP SCH ×2 (10:13→22:04)
[2020-07-31] MEDS: NICOTINE 7 MG/24 HOURS TOPICAL PATCH TD SCH (10:13)
[2020-07-31] MEDS ORDERED: MASKS NR ONE (14:19)
[2020-07-31] MEDS: MELATONIN 5 MG TABLETS PO SCH (22:02)
[2020-07-31] MEDS: THIAMINE HCL 100 MG TABLET (FP) PO SCH (22:02)
[2020-08-01] MEDS: TOLNAFTATE 1% CREAM 15 GM TUBE TP SCH ×2 (10:08→21:34)
[2020-08-01] MEDS: PRENATAL VITAMINS W/ FOLIC ACID TABLET (FP) PO SCH (10:08)
[2020-08-01] MEDS: hydrOXYzine PAMOATE 25 MG CAPSULE (FP) PO PRN (10:09)
[2020-08-01] MEDS: NICOTINE 7 MG/24 HOURS TOPICAL PATCH TD SCH (10:10)
[2020-08-01] MEDS: THIAMINE HCL 100 MG TABLET (FP) PO SCH (21:34)
[2020-08-01] MEDS: MELATONIN 5 MG TABLETS PO SCH (21:34)
[2020-08-01] MEDS ORDERED: SUVOREXANT 5 MG TABLET PO PRN (22:00)
[2020-08-02] MEDS: PRENATAL VITAMINS W/ FOLIC ACID TABLET (FP) PO SCH (10:20)
[2020-08-02] MEDS: NICOTINE 7 MG/24 HOURS TOPICAL PATCH TD SCH (10:20)
[2020-08-02] MEDS: TOLNAFTATE 1% CREAM 15 GM TUBE TP SCH ×2 (10:21→21:14)
[2020-08-02] MEDS: MELATONIN 5 MG TABLETS PO SCH (21:13)
[2020-08-02] MEDS: THIAMINE HCL 100 MG TABLET (FP) PO SCH (21:13)
[2020-08-03] MEDS: NICOTINE 7 MG/24 HOURS TOPICAL PATCH TD SCH (10:23)
[2020-08-03] MEDS: TOLNAFTATE 1% CREAM 15 GM TUBE TP SCH ×2 (10:23→21:28)
[2020-08-03] MEDS: PRENATAL VITAMINS W/ FOLIC ACID TABLET (FP) PO SCH (10:23)
[2020-08-03] MEDS: MELATONIN 5 MG TABLETS PO SCH (21:27)
[2020-08-03] MEDS: THIAMINE HCL 100 MG TABLET (FP) PO SCH (21:27)
[2020-08-04] MEDS: PRENATAL VITAMINS W/ FOLIC ACID TABLET (FP) PO SCH (10:24)
[2020-08-04] MEDS: TOLNAFTATE 1% CREAM 15 GM TUBE TP SCH ×2 (10:24→21:17)
[2020-08-04] MEDS: NICOTINE 7 MG/24 HOURS TOPICAL PATCH TD SCH (10:24)
[2020-08-04] MEDS: MELATONIN 5 MG TABLETS PO SCH (21:17)
[2020-08-04] MEDS: THIAMINE HCL 100 MG TABLET (FP) PO SCH (21:17)
[2020-08-04] MEDS ORDERED: MASKS NR ONE (21:36)
[2020-08-04] MEDS ORDERED: SUVOREXANT 5 MG TABLET PO PRN (22:00)
[2020-08-05] MEDS: PRENATAL VITAMINS W/ FOLIC ACID TABLET (FP) PO SCH (10:19)
[2020-08-05] MEDS: TOLNAFTATE 1% CREAM 15 GM TUBE TP SCH ×2 (10:20→21:14)
[2020-08-05] MEDS: NICOTINE 7 MG/24 HOURS TOPICAL PATCH TD SCH (10:20)
[2020-08-05] MEDS: MELATONIN 5 MG TABLETS PO SCH (21:14)
[2020-08-05] MEDS: THIAMINE HCL 100 MG TABLET (FP) PO SCH (21:14)
[2020-08-06] MEDS: TOLNAFTATE 1% CREAM 15 GM TUBE TP SCH ×2 (09:49→21:19)
[2020-08-06] MEDS: PRENATAL VITAMINS W/ FOLIC ACID TABLET (FP) PO SCH (09:49)
[2020-08-06] MEDS: NICOTINE 7 MG/24 HOURS TOPICAL PATCH TD SCH (09:50)
[2020-08-06] MEDS ORDERED: PT OWN MED DRAWER 7, Y5N ONE (19:15)
[2020-08-06] MEDS: THIAMINE HCL 100 MG TABLET (FP) PO SCH (21:19)
[2020-08-06] MEDS: MELATONIN 5 MG TABLETS PO SCH (21:19)
[2020-08-07 06:26] VITALS: PULSE 77
[2020-08-07] MEDS: PRENATAL VITAMINS W/ FOLIC ACID TABLET (FP) PO SCH (09:21)
[2020-08-07] MEDS: NICOTINE 7 MG/24 HOURS TOPICAL PATCH TD SCH (09:21)
[2020-08-07] MEDS: TOLNAFTATE 1% CREAM 15 GM TUBE TP SCH ×2 (09:22→21:26)
[2020-08-07] MEDS: THIAMINE HCL 100 MG TABLET (FP) PO SCH (21:25)
[2020-08-07] MEDS: MELATONIN 5 MG TABLETS PO SCH (21:25)
[2020-08-07] MEDS ORDERED: SUVOREXANT 5 MG TABLET PO PRN (22:00)
[2020-08-08 06:47] VITALS: BP 118/69; TEMP 97.7
[2020-08-08] MEDS: PRENATAL VITAMINS W/ FOLIC ACID TABLET (FP) PO SCH (10:07)
[2020-08-08] MEDS: TOLNAFTATE 1% CREAM 15 GM TUBE TP SCH (10:07)
[2020-08-08] MEDS: NICOTINE 7 MG/24 HOURS TOPICAL PATCH TD SCH (10:07)
== END 2020-08-08 10:15 | disposition home or self-care (01) | DRG 772 ==
LOC: YASAS 12:43 → Y3W 12:44
PROVIDERS: ADMIT Allergy & Immunology; ATTEND Allergy & Immunology
PROC: HZ42ZZZ Group Counseling for Substance Abuse Treatment, Cognitive-Behavioral (ICD-10-PCS; principal; 2020-07-30)
DX: F10.20 Alcohol dependence, uncomplicated (principal); F11.20 Opioid dependence, uncomplicated; F14.20 Cocaine dependence, uncomplicated; F17.210 Nicotine dependence, cigarettes, uncomplicated; G47.00 Insomnia, unspecified; Z59.0 Homelessness; Z91.018 Allergy to other foods